=== PATIENT | female | born 1985 | race Hispanic/Latino ===

== ENCOUNTER 2016-03-20 21:46 | Emergency (ER) | payer SELFPAY ==
[~2016-03-20] VITALS: Ht 167.6 cm; Wt 70.5 kg
[~2016-03-20 21:46] MED LIST: IUD; NAPR500T PO; NOMED; OMEP20TA86 PO
[2016-03-20 22:04] VITALS: BP 104/71; PULSE 91; RESP 16; O2SAT 98
[2016-03-20 22:34] LABS: BASOPHILS % (AUTO) 0.1 % (0-3); EOSINOPHILS % (AUTO) 0.9 % (0-5); MONOCYTES % (AUTO) 5.6 % (4-12); Mean Corpuscular Hemoglobin 31.3 pg (27.0-35.0); Mean Corpuscular Volume 91.5 fL (81-100); NEUTROPHILS % (AUTO) 82.2 % (40-74); Platelet Count 208 bil/L (150-400)
--- NOTE | 2016-03-21 00:39 | ED.REPORT ---
HPI-Abd Pain F Under 40 Date of Service Mar 21, 2016 ED Provider: Dr. Ketan De Oliveira MD A 30 year old female with a history of ectopic presents to the ED complaining of vomiting that began last night. Associated symptoms include nausea and abdominal pain. Patient has had numerous episodes of vomiting and her symptoms have been constant since onset. She denies any other medical complaints at this time. Nursing Notes Stated Complaint: VOMITING Chief Complaint: Female Abdominal Pain Nursing Notes Reviewed: Yes Allergies: Coded Allergies: No Known Allergies (Verified , 03/20/16) Scheduled Omeprazole (Omeprazole) 20 Mg Tablet.dr 20 MG PO DAILY Scheduled PRN Naproxen (Naprosyn) 500 Mg Tablet 500 MG PO BID PRN PRN For Pain Miscellaneous Medications ([Iud]) No Historical Medication (No Historical Medication) Ea General Time Seen by MD: 00:39 Chief Complaint Vomiting moderate Hx Obtained From: Patient Arrived By: Walk-in Sudden in Onset?: No Symptom Duration: Since onset Progression since Onset: Unchanged Location: : Diffuse Quality: Painful Radiation: : Does not radiate Severity: Current: Mild Severity: Maximum: Moderate Associated with: Reports: Nausea, Vomiting Pertinent Negative: Pt denies other symptoms Recent Healthcare: No recent doctor visit, No recent hospitalization Past Medical History Past Medical History Ectopic 3 grava 2 para Past Surgical History Laparoscopic ectopic removal Reports: Cholecystectomy Smoking History Never Smoker Social History Alcohol Use: Denies alcohol use Drug Use: Denies drug use Other Social History: Good social support, Local resident Ambulatory Status Independent Review of Systems Constitutional: Denies: Chills, Fever Respiratory: Denies: Shortness of breath Cardiovascular: Denies: Chest pain GI: Reports: Abdominal pain, Nausea, Vomiting Complete sys rev & neg: except as marked. Neurologic: Denies: Change LOC Physical Exam Initial Vital Signs Vital Signs (First) Date Time Temp Pulse Resp B/P Pulse Ox O2 Delivery O2 Flow Rate FiO2 03/20/16 22:04 36.6 91 16 104/71 98 Room Air Initial VS: Reviewed Head / Eyes: Atraumatic, Normocephalic, PERRL Extremities: Vascular intact, Neuro intact, No swelling, No tenderness Skin: Warm, Dry, No cyanosis Neurologic: Alert, Oriented, Nonfocal Psychiatric: Mood/affect normal, Behavior normal, Normal thought content General/Constitutional: Awake, Alert Respiratory / Chest: Atraumatic, Breath sounds NL, Breath sounds = bilat Cardiovascular: Heart rate NL, Regular rhythm, Heart sounds NL Abdomen: Atraumatic, Soft Tenderness/Guarding/Rebound: Positive: Tender RLQ... Back: Atraumatic, Inspection NL Interpretation & Diagnostics Lab Results Interpretation Result Diagram: 03/20/16221803/20/162218 Test 03/20/16 22:19 03/21/16 00:49 White Blood Count 8.7th/mm3 (3.8-10.1) Red Blood Count 4.47mil/mm3 (3.90-5.20) Hemoglobin 14.0g/dL (12.0-15.6) Hematocrit 40.9% (35.0-46.0) Mean Corpuscular Volume 91.5fL (81-100) Mean Corpuscular Hemoglobin 31.3pg (27.0-35.0) Mean Corpuscular Hemoglobin Concent 34.2% (32.0-37.0) Red Cell Distribution Width 12.4% (12.3-15.4) Platelet Count 208bil/L (150-400) Neutrophils (%) (Auto) 82.2% (40-74) Lymphocytes (%) (Auto) 11.0% (14-46) Monocytes (%) (Auto) 5.6% (4-12) Eosinophils (%) (Auto) 0.9% (0-5) Basophils (%) (Auto) 0.1% (0-3) Sodium Level 137mEq/L (134-144) Potassium Level 3.6mEq/L (3.5-5.2) Chloride Level 99mEq/L (97-108) Carbon Dioxide Level 26mmol/L (18-29) Blood Urea Nitrogen 10mg/dL (6-20) Creatinine 0.41mg/dL (0.57-1.00) Estimat Glomerular Filtration Rate 259mL/min (>59) Glucose Level 86mg/dL (60-99) Calcium Level 8.9mg/dL (8.5-10.1) Magnesium Level 2.0mg/dL (1.6-2.6) Total Bilirubin 0.6mg/dL (0.0-1.2) Aspartate Amino Transf (AST/SGOT) 20U/L (0-50) Alanine Aminotransferase (ALT/SGPT) 15U/L (0-32) Alkaline Phosphatase 91U/L (25-150) Total Protein 8.0g/dL (6.4-8.4) Albumin 4.5g/dL (3.4-5.0) Lipase 13U/L (13-60) Hold Peng Top Tube Received (Received) Urine Color Yellow (YELLOW) Urine Appearance Turbid (CLEAR,HAZY) Urine pH 5.5 (5.0-8.0) Urine Specific [place] 1.038 (1.003-1.035) Urine Protein Negativemg/dL (NEG,TRACE) Urine Glucose (UA) Negativemg/dL (NEGATIVE) Urine Ketones Negativemg/dL (NEGATIVE) Urine Occult Blood Trace (NEGATIVE) Urine Nitrite Negative (NEGATIVE) Urine Bilirubin Negative (NEGATIVE) Urine Urobilinogen Normalmg/dL (NORMAL) Urine Leukocyte Esterase Negative (NEGATIVE) Urine RBC 3-10/hpf (0-2) Urine WBC 0-5/hpf (0-5) Urine Epithelial Cells Occasional/hpf (NONE-MOD) Urine Crystals Amorphous urates (NONE Urine Bacteria Few/hpf (NONE-FEW) Urine Hyaline Casts None/lpf (NONE) Urine Granular Casts None seen (NONE SEEN) Urine Waxy Casts None seen (NONE SEEN) Urine Red Blood Cell Casts None seen (NONE SEEN) Urine White Blood Cell Casts None seen (NONE SEEN) Urine Mucus Present (None Seen) Urine Trichomonas None seen (NONE SEEN) Urine Yeast None (NONE SEEN) Urinalysis Comment None Urine Culture Reflexed Not indicated Lab Results Interpretation: Urine Dip SP gravity: 1.020 pH 5 Protein: trace Ketones: small Bilirubin: ++ Blood: trace CT Abd / Pelvis Interpretation IMPRESSION: Consider mild nonspecific enteritis such as infectious or inflammatory type. No bowel obstruction, perforation, or abdominal pelvic abscesses. IUD identified and appears in place. Study type: Abdominal CT IV contrast, Abdom CT oral contrast Interpretation / Wet Read by: Interpret - Radiologist (Nightshift ) Re-Eval/Medical Decision Med Decision/Clinical Course Acute appendicitis seems highly unlikely based on exam and CAT scan. CAT scan looks like she is developing gastroenteritis. Her exam was very benign after some fluids and pain medicine. I do not feel that surgical intervention is indicated right now. PID seems unlikely. We will send her urine out for testing. Recommend close outpatient follow-up. Short course of Atlantic provided as a take-home pack for the pain. Return warnings given. Routine opiate warnings given. Re-Evaluation/Progress #1: Time of Eval: 01:12 Patient Status: Condition improved Re-Evaluation/Progress Note: Patient is rechecked and is resting comfortably. She is informed of her lab results and CT results. Re-Evaluation/Progress #2: Time of Eval: 03:07 Patient Status: Condition improved Re-Evaluation/Progress Note: Patient is rechecked. All of her questions are addressed. She understands and agrees with the treatment plan. Counseled Regarding: Diagnosis, Lab results, Need for follow-up, When/why to return to ED Discharge & Departure Primary Impression: Enteritis Additional Impression: Abdominal pain Abdominal location: generalized Qualified Code: R10.84 - Generalized abdominal pain Disposition: Home Discharge Condition All VS Reviewed: Yes Condition: Stable Patient Instructions: Acute Nausea and Vomiting (ED) Additional Instructions: Thank you for trusting us with your care this evening. The laboratory work was normal. The CT scan shows thickened pena of small bowel that are fluid- filled. This is called enteritis. This may progress to diarrhea. This needs to be followed up closely. There are inflammatory conditions that can cause this and you may need a colonoscopy. I would like you to come back to the emergency Department right away if he develop any worsening pain or if he developed any bloody stools. Call your doctor later today to be seen in follow- up in the next couple of days. Please take 1 Zofran every 8 hours as needed for nausea. Make sure to drink plenty of fluids for the next few days. Schedule a follow up appointment with your primary care provider in the next 2-3 days for a recheck. Please return to the emergency department for any new or worsening symptoms. Take 1-2 Atlantic every 6 hours as needed for pain. Do not drive or drink alcohol or consume acetaminophen while taking the Atlantic. Do not drive tonight. Referrals: NOPCP (PCP) [facility] Scribe Attestation Portions of this note were transcribed by Sejal Boland. I, Dr. De Oliveira personally performed the history, physical exam and medical decision-making; I reviewed and confirmed the accuracy of the information in the transcribed note. Signed by: Maxi Griffin, 03/21/16 0300. Ketan De Oliveira DO Mar 21, 2016 00:39 SEJAL BOLAND Mar 21, 2016 00:47
[2016-03-21] MEDS ORDERED: Ondansetron 2 mg/mL 2 mL Inj IVPUSH PRN (00:45)
[2016-03-21] MEDS: fentaNYL-PF 50 mCg/mL 2 mL Inj IVPUSH PRN ×3 (01:06→02:46)
[2016-03-21] MEDS: 0.9% Sodium Chloride 1,000 ML IV SCH ×2 (01:06→01:48)
[2016-03-21 01:09] LABS: APPEARANCE,URINE TURBID (CLEAR,HAZY); COLOR,URINE YELLOW (YELLOW); OCCULT BLOOD,URINE TRACE (NEGATIVE); PH,URINE 5.5 (5.0-8.0); UROBILINOGEN,URINE NORMAL (NORMAL)
[2016-03-21] MEDS ORDERED: _Ondansetron ODT 4 mg Tablet PO PRN (03:20)
[2016-03-21] MEDS ORDERED: _HYDROcodone/APAP 5-325 mg Tablet PO PRN (03:20)
[2016-03-21 03:48] VITALS: BP 111/64; PULSE 90; RESP 24; O2SAT 99
[2016-03-21] MEDS ORDERED: Sodium Chloride LOK Flush 10 mL Syringe IVFLUSH SCH (08:30)
--- NOTE | 2016-03-21 10:39 | DRSVH ---
PROCEDURE: CT ABDOMEN AND PELVIS WITH CONTRAST (PNL-7102) INDICATIONS: 30 year-old woman with right lower quadrant pain. TECHNIQUE: After the administration of intravenous contrast, 5 mm thick sections acquired from the diaphragm to the symphysis. 5 mm coronal and sagittal reformats were acquired. For radiation dose reduction, the following was used: automated exposure control, adjustment of mA and/or kV according to patient silj e. COMPARISON: [facility], US, US PELVIC+TRANSVAG, 03/22/2015, 13:11. [facility] l, [place], PELVIS SONO TRANSVAGINAL (PNL), 09/10/2013, 11:08. CT, CHEST ANGIO-PE, 09/15/2008, 17:42. [facility], CT, ABD/PELVIS W/CON (PNL), 09/07/2013, 14:51. FINDINGS: Image quality: Excellent. ABDOMEN: Lung bases: Lung bases are clear. Heart size is normal. Solid organs: Liver and spleen are normal in size and enhancement. Gallbladder is surgically absent . Biliary system is non dilated. Pancreas enhances normally. No adrenal nodules. Kidneys demonstr ate normal size and enhancement. Mild right renal pelviectasis is unchanged. Peritoneum and bowel: Appendix is normal. Stomach is distended and filled with fluid/debris. There i s fluid filled small intestine which demonstrates normal caliber. Subtle increased small bowel mucos a enhancement is noted. There is equivocal mild small bowel thickening in proximal jejunum. No free a ir. Trace amount of free fluid. Nodes and vessels: No retroperitoneal or mesenteric adenopathy by size criteria. Numerous small mes enteric lymph nodes are noted. Aorta and inferior vena cava are normal in size. Miscellaneous: No ventral hernias. PELVIS: Genitourinary: Bladder wall thickness is normal. There is an IUD in uterus. Miscellaneous: No inguinal hernias or adenopathy. Bones: No suspicious bony lesions. No vertebral body compression fractures. IMPRESSION: 1. Normal appendix. 2. The CT findings suggest nonspecific gastroenteritis. 3. Number small normal sized mesenteric lymph nodes, compatible with nonspecific mesenteric adenitis 4. Mild pelviectasis of the right kidney is unchanged. No significant discrepancy with the mail clerk radiology preliminary report. Dictated by: Gigi Mason M.D. on 03/21/2016 at 10:29 Approved by: Gigi Mason M.D. on 03/21/2016 at 10:38
== END 2016-03-21 03:50 | disposition home or self-care (01) ==
LOC: SED 21:46
DX: K52.9 Noninfective gastroenteritis and colitis, unspecified (principal); Z87.19 Personal history of other diseases of the digestive system
CPT/HCPCS: 36415; 74177; 80053; 81000; 81025; 83690; 83735; 85025; 96374; 96375; 96376; 99285; J2405; J3010; J7030; Q9967

== ENCOUNTER 2016-07-22 23:16 | Emergency (ER) | payer SELFPAY ==
[2016-07-22 23:28] VITALS: BP 107/74; PULSE 90; RESP 16; O2SAT 98
--- NOTE | 2016-07-22 23:36 | ED.REPORT ---
HPI-General Illness Date of Service Jul 22, 2016 ED Provider: Kunal Kelley MD Pt is a 30 y.o. Portuguese-speaking female with a hx of cholecystectomy who presents to the ED c/o gradually worsening low back pain onset "several" days ago. Pt reports associated nausea, vomiting x2, diarrhea, right sided abdominal pain, and occasional lightheadedness. Had some tingling in her fingers, resolved. She denies fever, dysuria, hematuria, bladder/bowel dysfunction, and vaginal discharge. Nursing Notes Stated Complaint: BACKPAIN Chief Complaint: General Complaint Nursing Notes Reviewed: Yes Allergies: Coded Allergies: No Known Allergies (Verified , 07/22/16) Scheduled Omeprazole (Omeprazole) 20 Mg Tablet.dr 20 MG PO DAILY Scheduled PRN Naproxen (Naprosyn) 500 Mg Tablet 500 MG PO BID PRN PRN For Pain Miscellaneous Medications ([Iud]) No Historical Medication (No Historical Medication) Ea General Time Seen by MD: 23:36 Chief Complaint Back pain Hx Obtained From: Patient Arrived By: Walk-in Sudden in Onset?: No Onset Occurred: Onset unknown ("severa" days) Symptom Duration: Since onset Location: : Abdomen: Back Quality: Aching, Painful Radiation: : Does not radiate Past Medical History Past Medical History Ectopic 3 grava 2 para Past Surgical History Laparoscopic ectopic removal Reports: Cholecystectomy Smoking History Never Smoker Social History Alcohol Use: Denies alcohol use Drug Use: Denies drug use Other Social History: Good social support, Local resident Ambulatory Status Independent Review of Systems Full Review of Systems Constitutional: Denies: Fever GI: Reports: Abdominal pain, Diarrhea, Nausea, Vomiting Female: Denies: Dysuria, Incontinence, Vaginal discharge Musculoskeletal: Reports: Back pain, Extremity pain (Finger pain) Neurologic: Reports: Lightheaded, Denies: Bladder dysfunction, Bowel dysfunction Complete sys rev & neg: except as marked. Physical Exam Vital Signs Vital Signs Date Time Temp Pulse Resp B/P Pulse Ox O2 Delivery O2 Flow Rate FiO2 07/23/16 02:12 37.0 77 16 105/72 98 Room Air 07/22/16 23:28 36.6 90 16 107/74 98 Room Air Initial VS: Reviewed Abdomen / GI: No distention Extremities: Vascular intact, Neuro intact Skin: Warm, Dry, No cyanosis Psychiatric: Mood/affect normal, Behavior normal, Normal thought content General/Constitutional: Awake, Alert, Well appearing, Well developed, Well hydrated, Well nourished, Not toxic appearing Head / Eyes: Atraumatic, Normocephalic, PERRL Respiratory / Chest: Atraumatic, Breath sounds NL, Breath sounds = bilat, No respiratory distress Cardiovascular: Heart rate NL, Regular rhythm, Heart sounds NL, Cap refill not delayed, Peripheral circulation NL Abdomen: Atraumatic, Soft, No guarding, No rebound, No distention Tenderness/Guarding/Rebound: Positive: Tender RLQ... Back: Atraumatic, Inspection NL, Full range of motion, No midline vertebral tend, No paraspinal tenderness Interpretation & Diagnostics Lab Results Interpretation Result Diagram: 07/23/16 0010 07/23/16 0010 Test 07/23/16 00:01 07/23/16 00:10 Urine Color Straw (YELLOW) Urine Appearance Clear (CLEAR,HAZY) Urine pH 6.0 (5.0-8.0) Urine Specific [place] 1.003 (1.003-1.035) Urine Protein Negativemg/dL (NEG,TRACE) Urine Glucose (UA) Negativemg/dL (NEGATIVE) Urine Ketones Negativemg/dL (NEGATIVE) Urine Occult Blood Trace (NEGATIVE) Urine Nitrite Negative (NEGATIVE) Urine Bilirubin Negative (NEGATIVE) Urine Urobilinogen Normalmg/dL (NORMAL) Urine Leukocyte Esterase Trace (NEGATIVE) Urine RBC 0-2/hpf (0-2) Urine WBC 0-5/hpf (0-5) Urine Epithelial Cells Moderate/hpf (NONE-MOD) Urine Crystals None seen (NONE SEEN) Urine Bacteria None/hpf (NONE-FEW) Urine Hyaline Casts None/lpf (NONE) Urine Granular Casts None seen (NONE SEEN) Urine Waxy Casts None seen (NONE SEEN) Urine Red Blood Cell Casts None seen (NONE SEEN) Urine White Blood Cell Casts None seen (NONE SEEN) Urine Mucus None seen (None Seen) Urine Trichomonas None seen (NONE SEEN) Urine Yeast None (NONE SEEN) Urine Culture Reflexed Indicated White Blood Count 6.2th/mm3 (3.8-10.1) Red Blood Count 4.37mil/mm3 (3.90-5.20) Hemoglobin 14.0g/dL (12.0-15.6) Hematocrit 40.0% (35.0-46.0) Mean Corpuscular Volume 91.5fL (81-100) Mean Corpuscular Hemoglobin 32.0pg (27.0-35.0) Mean Corpuscular Hemoglobin Concent 35.0% (32.0-37.0) Red Cell Distribution Width 12.6% (12.3-15.4) Platelet Count 240bil/L (150-400) Neutrophils (%) (Auto) 78.6% (40-74) Lymphocytes (%) (Auto) 10.1% (14-46) Monocytes (%) (Auto) 10.5% (4-12) Eosinophils (%) (Auto) 0.3% (0-5) Basophils (%) (Auto) 0.2% (0-3) Sodium Level 136mEq/L (134-144) Potassium Level 3.8mEq/L (3.5-5.2) Chloride Level 98mEq/L (97-108) Carbon Dioxide Level 21mmol/L (18-29) Blood Urea Nitrogen 9mg/dL (6-20) Creatinine 0.41mg/dL (0.57-1.00) Estimat Glomerular Filtration Rate 259mL/min (>59) Glucose Level 100mg/dL (60-99) Calcium Level 9.3mg/dL (8.5-10.1) Magnesium Level 2.2mg/dL (1.6-2.6) Total Bilirubin 0.7mg/dL (0.0-1.2) Aspartate Amino Transf (AST/SGOT) 25U/L (0-50) Alanine Aminotransferase (ALT/SGPT) 21U/L (0-32) Alkaline Phosphatase 90U/L (25-150) Total Protein 8.0g/dL (6.4-8.4) Albumin 4.7g/dL (3.4-5.0) Lipase 16U/L (13-60) Hold Peng Top Tube Received (Received) CT Abd / Pelvis Interpretation CONCLUSION: Normal appendix. No evidence of obstructive uropathy. Scattered and mildly distended loops of bowel with no evidence of a transition. These findings are suggestive of nonspecific enteritis. Multiple subcentimeter root lymph nodes can be seen in the setting if mesenteric adenitis. IUD noted. Radiologist: Bj Rivera MD Re-Eval/Medical Decision Med Decision/Clinical Course 30 yo F w/ gradual onset R sided back pain and R flank pain over the past several days. No bowel/bladder incontinence, no urinary retention. No other red flags for cauda equina. UPT negative; IUD in place on CT. Clinical hx doesn't seem c/w ovarian torsion at this time, however patient counselled to return if symptoms worsen and f/u w/ PCP [facility]. CT neg for acute abnormalities except for findings c/w possible enteritis, which does seem to fit w/ her clinical picture. Given this, seems reasonable to d/c home w/ careful return precautions. Pt agreeable to plan, no further questions. Source of Hx: Old records Time of Eval: 02:05 Re-Evaluation/Progress Note: Pt rechecked. Improved. Discussed imaging results and plan for discharge, pt understands and agrees with plan. Counseled Regarding: Diagnosis, Lab results, Need for follow-up, When/why to return to ED Discharge & Departure Primary Impression: Abdominal pain Abdominal location: unspecified location Qualified Code: R10.9 - Unspecified abdominal pain Disposition: Home Discharge Condition All VS Reviewed: Yes Condition: Improved Additional Instructions: Thank you for entrusting us with your care today. You evaluation, labs, and imaging was reassuring. I believe your symptoms were caused by a viral illness. I will prescribe you Zofran to take as directed for nausea and vomiting. I recommend you keep well hydrated. Follow-up with your primary care provider, call Saturday to schedule an appointment. Return if you develop worsening pain, intractable vomiting, or any new or worsening symptoms. Referrals: NOPCP (PCP) [facility] Maxi Attestation Portions of this note were transcribed by Florencio Ramsay. I, Dr. Kelley personally performed the history, physical exam and medical decision-making; I reviewed and confirmed the accuracy of the information in the transcribed note. Signed by: Maxi Horn, 07/23/2016 and 0211. copies to: [facility] Kunal Kelley MD Jul 22, 2016 23:36 FLORENCIO RAMSAY Jul 22, 2016 23:40
[2016-07-23 00:20] LABS: BASOPHILS % (AUTO) 0.2 % (0-3); EOSINOPHILS % (AUTO) 0.3 % (0-5); MONOCYTES % (AUTO) 10.5 % (4-12); Mean Corpuscular Volume 91.5 fL (81-100); NEUTROPHILS % (AUTO) 78.6 % (40-74); Platelet Count 240 bil/L (150-400)
[2016-07-23] MEDS ORDERED: 0.9% Sodium Chloride 1,000 ML IV ONE (00:25)
[2016-07-23 00:47] LABS: APPEARANCE,URINE CLEAR (CLEAR,HAZY); COLOR,URINE STRAW (YELLOW); OCCULT BLOOD,URINE TRACE (NEGATIVE); UROBILINOGEN,URINE NORMAL (NORMAL)
[2016-07-23 00:51] LABS: Magnesium 2.2 mg/dL (1.6-2.6)
[2016-07-23 02:12] VITALS: BP 105/72; PULSE 77; RESP 16; O2SAT 98
[2016-07-23] MEDS ORDERED: _Ondansetron ODT 4 mg Tablet PO PRN (02:15)
--- NOTE | 2016-07-23 09:13 | DRSVH ---
PROCEDURE: CT ABDOMEN AND PELVIS WITH CONTRAST (PNL-7102) INDICATIONS: abdominal pain TECHNIQUE: After the administration of intravenous contrast, 5 mm thick sections acquired from the diaphragm to the symphysis. 5 mm coronal and sagittal reformats were acquired. For radiation dose reduction, the following was used: automated exposure control, adjustment of mA and/or kV according to patient farhat trevino. COMPARISON: [facility], CT, CT ABD PELVIS W CON, 03/21/2016, 2:30. [facility], CT, ABD/PELVIS W/CON (PNL), 09/07/2013, 14:51. FINDINGS: Image quality: Excellent. ABDOMEN: Lung bases: Lung bases are clear. Heart size is normal. Solid organs: Liver and spleen are normal in size and enhancement. Gallbladder is surgically absent . Biliary system is non dilated. Pancreas enhances normally. No adrenal nodules. Kidneys demonstr ate normal size and enhancement, without hydronephrosis. Small right renal cyst is noted. Peritoneum and bowel: Bowel loops demonstrate normal wall thickness and caliber. There is mild diste ntion of multiple loops of small bowel which is nonspecific may represent a mild, nonspecific enterit is. No free fluid or air. Nodes and vessels: No retroperitoneal or mesenteric adenopathy by size criteria. Aorta and inferior vena cava are normal in size. Miscellaneous: No ventral hernias. PELVIS: Genitourinary: Bladder wall thickness is normal. Intrauterine device noted. Miscellaneous: No inguinal hernias or adenopathy. Bones: No suspicious bony lesions. No vertebral body compression fractures. IMPRESSION: 1. Mild distention of several loops of small bowel without evidence of obstruction. Finding is nonspe cific but may reflect mild nonspecific enteritis. Please correlate with clinical data. 2. Status post cholecystectomy. 3. The appendix is normal. 4. No free fluid or air. Dictated by: Danielle Blackman MD, PhD on 07/23/2016 at 9:07 Approved by: Danielle Blackman MD, PhD on 07/23/2016 at 9:12
== END 2016-07-23 02:27 | disposition home or self-care (01) ==
LOC: SED 23:24
DX: R10.9 Unspecified abdominal pain (principal)
CPT/HCPCS: 36415; 74177; 80053; 81000; 81025; 83690; 83735; 85025; 87086; 87088; 99284; J7030; Q9967